=== PATIENT | female | born 1970 | race Caucasian/White ===

== ENCOUNTER 2023-10-28 19:58 | Emergency (ER) | payer MEDICAID ==
[~2023-10-28] VITALS: Ht 154.9 cm; Wt 132.0 kg
[2023-10-28 21:00] LABS: BASOPHILS # (AUTO) 0.1 K/uL (0.0-0.2); BASOPHILS % (AUTO) 1.1 % (0.0-2.0); EOSINOPHILS # (AUTO) 0.2 K/uL (0.0-0.7); EOSINOPHILS % (AUTO) 2.8 % (0.0-6.0); HEMATOCRIT 45 % (33-45); HEMOGLOBIN 14.7 g/dL (11.5-14.8); LYMPHOCYTES # (AUTO) 1.9 K/uL (0.8-4.8); LYMPHOCYTES % (AUTO) 29.5 % (20.0-44.0); MEAN CORPUSCULAR HEMOGLOBIN 30 PG (26.0-33.0); MEAN CORPUSCULAR HGB CONC 33 g/dl (31.0-36.0); MEAN CORPUSCULAR VOLUME 92 fL (82-100); MONOCYTES # (AUTO) 0.7 K/uL (0.1-1.30); MONOCYTES % (AUTO) 10.9 % (2.0-12.0); NEUTROPHILS # (AUTO) 3.5 K/uL (1.8-8.9); NEUTROPHILS % (AUTO) 55.7 % (43.0-81.0); PLATELET COUNT (AUTO) 220 K/uL (150-450); RED CELL DISTRIBUTION WIDTH 17.4 % (11.5-15.0); WHITE BLOOD COUNT (AUTO) 6.3 K/uL (4.3-11.0)
[2023-10-28] MEDS ORDERED: PRIM1POW MC (21:29)
[2023-10-28] MEDS ORDERED: LISI10TA30 GT (21:29)
[2023-10-28] MEDS ORDERED: SERT50TA12 PO (21:29)
[2023-10-28] MEDS ORDERED: PIOG30TA10 PO (21:29)
[2023-10-28] MEDS ORDERED: SIMV-49 PO (21:29)
[2023-10-28 21:42] LABS: APPEARANCE,URINE Clear (CLEAR); BILIRUBIN,URINE LARGE (NEGATIVE); BLOOD, URINE Negative Ery/uL (NEGATIVE); COLOR,URINE YELLOW (YELLOW); KETONES,URINE >=160 mg/dL (NEGATIVE); LEUKOCYTE ESTERASE ,URINE Negative (NEGATIVE); NITRITE, URINE Negative (NEGATIVE); PROTEIN,URINE 30 mg/dl (NEGATIVE); UGLUCOSE 100 MG/DL mg/dL (NEGATIVE)
[2023-10-28 21:45] LABS: ALANINE AMINOTRANSFERASE 30 U/L (12-78); ALBUMIN 2.8 g/dL (3.4-5.0); ALKALINE PHOSPHATASE 81 U/L (46-116); ASPARTATE AMINOTRANSFERASE 50 U/L (15-37); BILIRUBIN,DIRECT 0.3 mg/dL (0.0-0.2); BILIRUBIN,TOTAL 1.1 mg/dL (0.2-1.0); CALCIUM, SERUM 9.5 mg/dL (8.5-10.1); CARBON DIOXIDE 24 mmol/L (21-32); CHLORIDE 97 mmol/L (98-107); CREATININE 0.8 mg/dL (0.6-1.3); GLUCOSE 111 mg/dL (74-106); LIPASE 82 U/L (16-77); POTASSIUM 2.9 mmol/L (3.5-5.1); SODIUM SERUM 139 mmol/L (136-145); TOTAL PROTEIN, SERUM 6.5 g/dL (6.4-8.2); UREA NITROGEN, BLOOD 6 mg/dL (7-18)
[2023-10-28 21:51] LABS: ADD URINE CULTURE NO; BACTERIA,URINE Few /HPF (None Seen); RBC,URINE 21-50 /HPF (0-2); SQUAMOUS EPITHELIAL CELL,UR Few /HPF (None Seen)
[2023-10-28] MEDS ORDERED: ONDANSETRON HCL/PF 4 MG/2 ML VIAL ONE (22:38)
[2023-10-28] MEDS ORDERED: MORPHINE SULFATE INJ 2 MG/ML DISP.SYRIN ONE (22:39)
[2023-10-28] MEDS ORDERED: ONDA4TAB5 PO (22:46)
[2023-10-28] MEDS ORDERED: HYDR-4303 PO (22:47)
[2023-10-28] MEDS: IV NS 0.9% 1,000 ML BAG IV ONE (22:52)
[2023-10-28] MEDS: MORPHINE SULFATE INJ 2 MG/ML DISP.SYRIN IV ONE (22:54)
[2023-10-28] MEDS: ONDANSETRON HCL/PF 4 MG/2 ML VIAL IV ONE (22:54)
[2023-10-28 23:36] VITALS: BP 124/80; TEMP 98; O2SAT 99
== END 2023-10-28 23:36 | disposition home or self-care (01) ==
LOC: ER 20:33
DX: N39.0 Urinary tract infection, site not specified (principal); R55 Syncope and collapse; R10.2 Pelvic and perineal pain; R30.0 Dysuria; R00.2 Palpitations; I10 Essential (primary) hypertension; E11.9 Type 2 diabetes mellitus without complications; E66.9 Obesity, unspecified; J45.909 Unspecified asthma, uncomplicated; Z87.19 Personal history of other diseases of the digestive system; Z68.43 Body mass index [BMI] 50.0-59.9, adult; Z88.8 Allergy status to other drugs, medicaments and biological substances
CPT/HCPCS: 99285; 74176; 96374; 71045; 96361; 96375; 93005; 85025; 80048; 83690; 80076; 81001; 36415; 84484; 82962; J2405; J7030; J2270